=== PATIENT | female | born 1970 | race Caucasian/White ===

== ENCOUNTER → 2017-06-16 | Outpatient (CLI) | payer BC ==
--- NOTE | 2017-06-16 16:49 | RAD ---
DATE: 06/16/2017 EXAM: MAMMO FRANCISCO SCREENING BILATERAL HISTORY: Asymptomatic screening mammogram COMPARISON: Prior mammograms from 06/05/2016, 06/13/2015, 06/11/2014 This study was interpreted with the benefit of Computerized Aided Detection (CAD). The breast parenchyma is heterogeneously dense, which could reduce sensitivity of mammography. Breast parenchyma level C. FINDINGS: Bilateral CC and MLO views of the breasts were performed. Bilateral breast tomosynthesis was performed. Right breast: There are no suspicious microcalcifications, masses or areas of architectural distortion. Stable appearance of circumscribed oval masses. Left breast: There are no suspicious microcalcifications, masses or areas of architectural distortion. Stable appearance of circumscribed oval masses. Findings are stable from prior mammogram and breast tomosynthesis. IMPRESSION: Right breast: Benign findings. Left breast: Benign findings. Recommend annual screening mammography. BI-RADS CATEGORY: 2 BENIGN FINDING(S) RECOMMENDED FOLLOW-UP: 12M 12 MONTH FOLLOW-UP PQRS compliance statement: Patient information was entered into a reminder system with a target due date 06/16/2018 for the next mammogram. Mammography is a sensitive method for finding small breast cancers, but it does not detect them all and is not a substitute for careful clinical examination. A negative mammogram does not negate a clinically suspicious finding and should not result in delay in biopsying a clinically suspicious abnormality. "Our facility is accredited by the [employer] Mammography [employer]."
== END | disposition home or self-care (01) ==
LOC: MAMMO 13:05
PROVIDERS: ATTEND Obstetrics & Gynecology
DX: Z12.31 Encounter for screening mammogram for malignant neoplasm of breast (principal)
CPT/HCPCS: 77063; G0202; 77067

== ENCOUNTER → 2018-07-20 | Outpatient (CLI) | payer BC ==
--- NOTE | 2018-07-20 10:15 | RAD ---
DATE: 07/20/2018 EXAM: MAMMO FRANCISCO SCREENING BILATERAL HISTORY: Routine screening COMPARISON: 06/16/2017 This study was interpreted with the benefit of Computerized Aided Detection (CAD). Breast Density: HETERO The breast parenchyma is heterogenously dense, which could reduce sensitivity of mammography. Breast parenchyma level C. FINDINGS: 2-D and 3-D tomosynthesis imaging was performed in CC and MLO projections. Several small smooth nodules in both breasts appear unchanged. No new or enlarging breast densities are seen. No suspicious microcalcifications are evident. Moderate sized left axillary lymph nodes are partially visualized on the oblique view. They are also partially visible on an old study from 2010. They were not visible on the other old exams, probably due to technical factors with less of the axilla included is in the [id number]. Clinical surveillance of the left axilla suggested. IMPRESSION: 1. There is no mammographic evidence of malignancy in either breast. 2. Incompletely visualized prominent left axillary lymph nodes. Clinical correlation is suggested. BI-RADS CATEGORY: 2 BENIGN FINDING(S) RECOMMENDED FOLLOW-UP: 12M 12 MONTH FOLLOW-UP PQRS compliance statement: Patient information was entered into a reminder system with a target due date for the next mammogram. Mammography is a sensitive method for finding small breast cancers, but it does not detect them all and is not a substitute for careful clinical examination. A negative mammogram does not negate a clinically suspicious finding and should not result in delay in biopsying a clinically suspicious abnormality. "Our facility is accredited by the [employer] Mammography [employer]."
== END | disposition home or self-care (01) ==
LOC: MAMMO 08:39
PROVIDERS: ATTEND Obstetrics & Gynecology
DX: Z12.31 Encounter for screening mammogram for malignant neoplasm of breast (principal)
CPT/HCPCS: 77063; 77067

== ENCOUNTER → 2019-07-24 | Outpatient (CLI) | payer BC ==
--- NOTE | 2019-07-26 15:40 | RAD ---
DATE: 07/24/2019 EXAM: MAMMO FRANCISCO SCREENING BILATERAL HISTORY: Routine screening COMPARISON: 06/05/2016, 06/16/2017, and 07/20/2018 mammographic exams This study was interpreted with the benefit of Computerized Aided Detection (CAD). Breast Density: HETERO The breast parenchyma is heterogenously dense, which could reduce sensitivity of mammography. Breast parenchyma level C. FINDINGS: Benign masses are stable. No suspicious calcifications or distortion. IMPRESSION: No new findings. BI-RADS CATEGORY: 1 NEGATIVE RECOMMENDED FOLLOW-UP: 12M 12 MONTH FOLLOW-UP PQRS compliance statement: Patient information was entered into a reminder system with a target due date in one year for the next mammogram. Mammography is a sensitive method for finding small breast cancers, but it does not detect them all and is not a substitute for careful clinical examination. A negative mammogram does not negate a clinically suspicious finding and should not result in delay in biopsying a clinically suspicious abnormality. "Our facility is accredited by the [employer] Mammography [employer]."
== END | disposition home or self-care (01) ==
LOC: MAMMO 15:31
PROVIDERS: ATTEND Internal Medicine
DX: Z12.31 Encounter for screening mammogram for malignant neoplasm of breast (principal); N63.20 Unspecified lump in the left breast, unspecified quadrant; N63.10 Unspecified lump in the right breast, unspecified quadrant
CPT/HCPCS: 77063; 77067

== ENCOUNTER → 2020-08-05 | Outpatient (CLI) | payer BC ==
--- NOTE | 2020-08-05 18:28 | RAD ---
EXAMINATION: Bilateral screening mammogram, 08/05/2020 8:00 AM CLINICAL INDICATION: 49-year-old woman presenting for screening mammogram. COMPARISON: 07/24/2019 and 07/20/2018 TECHNIQUE: Digital bilateral full-field CC and MLO views, and CC and MLO tomosynthesis views of the breasts were obtained. CAD was utilized. FINDINGS: The breasts are heterogeneously dense, which may obscured small masses. Multiple bilateral benign-appearing masses are unchanged. There is no suspicious mass, suspicious calcification, or architectural distortion. IMPRESSION: 1. No mammographic evidence of malignancy. 2. BI-RADS 2-benign. 3. Routine annual screening mammogram is recommended in 1 year. The patient will receive a reminder letter by mail when she is due for her next exam. Electronically signed by: Melly Hunt MD (08/05/2020 6:25 PM) [id number]
== END | disposition home or self-care (01) ==
LOC: MAMMO 07:54
PROVIDERS: ATTEND Internal Medicine
DX: Z12.31 Encounter for screening mammogram for malignant neoplasm of breast (principal); N64.89 Other specified disorders of breast
CPT/HCPCS: 77063; 77067

== ENCOUNTER → 2021-08-05 | Outpatient (CLI) | payer BC ==
--- NOTE | 2021-08-05 09:41 | RAD ---
EXAM: Bilateral digital screening mammogram with tomosynthesis. HISTORY: 50-year-old female presents for screening mammography. TECHNIQUE: Full-field digital craniocaudal and mediolateral oblique 2D and 3D tomosynthesis images of both breasts are obtained for evaluation. Computer aided detection was applied. COMPARISON: 08/05/2020, 07/24/2019, 07/20/2018 BREAST PARENCHYMAL DENSITY: Level C - Heterogeneously dense. FINDINGS: There is no new suspicious mass, microcalcification or region of architectural distortion. There is stable benign-appearing circumscribed nodules within both breasts, some which are likely int ramammary lymph nodes. There are prominent left axillary lymph nodes which are excluded from the fiel d-of-view on the most recent comparison studies. However, these are stable compared to a study perfor med 07/20/2018. This favors benignity. IMPRESSION: BI-RADS Category 2: Benign finding(s). RECOMMENDATION: Annual mammography is recommended. If your mammogram demonstrates that you have dense breast tissue, which could hide abnormalities, and if you have other risk factors for breast cancer that have been identified, you might benefit from s upplemental screening tests that may be suggested by your ordering physician. Dense breast tissue, i n and of itself, is a relatively common condition. This information is not provided to cause undue c oncern, but rather to raise your awareness and to promote discussion with your physician regarding th e presence of other risk factors, in addition to dense breast tissue. A report of your mammography re sults will be sent to you and your physician. You should contact your physician if you have any ques tions or concerns regarding this report. Mammography is a sensitive method for finding small breast cancers, but it does not detect them all a nd is not a substitute for careful clinical examination. A negative mammogram does not negate a clin ically suspicious finding and should not result in delay in biopsying a clinically suspicious abnorma lity. PQRS compliance statement - Patient information was entered into a reminder system with a target due date for the next mammogram. "Our facility is accredited by the [employer] Mammography [employer]." Electronically signed by: Sanjuanita Abraham MD (08/05/2021 9:39 AM) [id number]
== END ==
LOC: MAMMO 08:42
PROVIDERS: ATTEND Internal Medicine
DX: Z12.31 Encounter for screening mammogram for malignant neoplasm of breast (principal)
CPT/HCPCS: 77063; 77067